=== PATIENT | female | born 1990 | race Caucasian/White ===

== ENCOUNTER 2023-05-24 07:59 | Emergency (ER) | payer MEDICAID, OTHER ==
[~2023-05-24] VITALS: Ht 152.4 cm; Wt 82.6 kg
[2023-05-24 08:02] VITALS: BP_SYST 114; PULSE 101; RESP 18; TEMP 97.6; O2SAT 97
[2023-05-24] MEDS ORDERED: IPRATROPIUM BROM 0.5 MG/2.5 ML VIAL.NEB (ATROVENT) INH ONE ×3 (08:15→08:30)
[2023-05-24] MEDS ORDERED: predniSONE 20 MG TABLET PO ONE (08:15)
[2023-05-24] MEDS ORDERED: ALBUTEROL SULFATE 0.083% 2.5 MG/3 ML VIAL.NEB INH ONE ×2 (08:26→08:30)
[2023-05-24 09:47] LABS: INFLUENZA TYPE A negative (NEGATIVE); INFLUENZA TYPE B NEGATIVE (NEGATIVE)
[2023-05-24] MEDS ORDERED: PRED20TA PO (09:58)
[2023-05-24] MEDS ORDERED: ZIT250 PO (09:58)
[2023-05-24] MEDS ORDERED: NIRM1TAB5 PO (09:58)
[2023-05-24 10:11] VITALS: BP_SYST 114; PULSE 101; RESP 18; TEMP 97.6; O2SAT 98
== END 2023-05-24 10:10 | disposition home or self-care (01) ==
LOC: SED 07:59
DX: U07.1 COVID-19 (principal); J40 Bronchitis, not specified as acute or chronic; R05.9 Cough, unspecified; R09.81 Nasal congestion; R06.02 Shortness of breath; Z79.899 Other long term (current) drug therapy
CPT/HCPCS: 99284; 71045; 87426; 36415; 94640; 87804 ×2; J7512